=== PATIENT | female | born 1955 | race Two or more races ===

== ENCOUNTER 2024-12-25 11:45 | Emergency (ER) | payer OTHER, MEDICAID ==
[~2024-12-25] VITALS: Ht 149.9 cm; Wt 74.0 kg
--- NOTE | 2024-12-25 12:34 | ED.PDOC ---
SOB-HPI HPI Comments 69 y/o F, presents to the ED for CC of shortness of breath. Patient states, she has been experiencing shortness of breath with associated symptoms of chest pain that radiates to her back xdays. Patient denies any current chest pain, fever, chills, body-aches, or N/V/D. No other associated symptom's, modifiers, recent injuries or sick contacts at this time. Chief Complaint: Shortness of Breath Time Seen by MD: 12:00 Primary Care Provider: T Reviewed notes: Nurses Notes, Medications, Allergies Information Source: Patient Mode of Arrival: EMS Severity: Mild Timing: Days Duration: Since onset PE Risk Factors: None History of: None Modifying Factors: Nothing Associated Signs and Symptoms: None Radiation: Back Location: Substernal Past Medical History PAST MEDICAL HISTORY: Denies Surgical History: Denies all surgeries GROCERY CLERK STOCKING History: Denies all GROCERY CLERK STOCKING Hx Family History Family History: Unknown Social History Smoker: Non-Smoker Alcohol: Denies ETOH Use Drugs: Denies Drug Use Lives In: Home Constitutional: denies: chills, diaphoresis, fatigue, fever, malaise, sweats, weakness, others EENTM: denies: blurred vision, double vision, ear bleeding, ear discharge, ear drainage, ear pain, ear ringing, eye pain, eye redness, hearing loss, mouth pain, mouth swelling, nasal discharge, nose bleeding, nose congestion, nose pain, photophobia, tearing, throat pain, throat swelling, voice changes, others Respiratory: reports: shortness of breath; denies: cough, hemoptysis, orthopnea, SOB at rest, SOB with excertion, stridor, wheezing, others Cardiovascular: reports: chest pain, irregular heart beat; denies: dizzy spells, diaphoresis, Dyspnea on exertion, edema, left arm pain, lightheadedness, palpitations, PND, syncope, others Gastrointestinal: denies: abdomen distended, abdominal pain, blood streaked bowels, constipated, diarrhea, dysphagia, difficulty swallowing, hematemesis, melena, nausea, poor appetite, poor fluid intake, rectal bleeding, rectal pain, vomiting, others Genitourinary: denies: abnormal vagina bleeding, burning, dyspareunia, dysuria, flank pain, frequency, hematuria, incontinence, pain, , vagina discharge, urgency, others Neurological: denies: dizziness, fainting, headache, left sided numbness, left sided weakness, numbness, paresthesia, pre-existing deficit, right sided numbness, right sided weakness, seizure, speech problems, tingling, tremors, weakness, others Musculoskeletal: denies: back pain, gout, joint pain, joint swelling, muscle pain, muscle stiffness, neck pain, others Integumetry: denies: bruises, change in color, change in hair/nails, dryness, laceration, lesions, lumps, rash, wounds, others Allergic/Immunocompromised: denies: Difficulty Healing, Frequent Infections, Hives, Itching, others Hematologic/Lymphatic: denies: anemia, blood clots, easy bleeding, easy bruising, swollen glands, others Endocrine: denies: excessive hunger, excessive sweating, excessive thirst, excessive urination, flushing, intolerance to cold, intolerance to heat, unexplained weight gain, unexplained weight loss, others Psychiatric: denies: anxiety, bipolar disorder, depression, hopeless, panic disorder, schizophrenia, sleepless, suicidal, others All Other Systems: Reviewed and Negative Physical Exam General Appearance: No Apparent Distress HEENT: Normal ENT Inspection, Pharynx Normal, TMs Normal Neck: Full Range of Motion, Non-Tender, Normal, Normal Inspection Respiratory: Chest Non-Tender, Lungs Clear, No Accessory Muscle Use, No Respiratory Distress, Normal Breath Sounds Cardiovascular: No Edema, No JVD, No Murmur, No Gallop, Normal Peripheral Pulses, Regular Rate/Rhythm Breast Exam: Deferred Gastrointestinal: No Organomegaly, Non Tender, No Pulsatile Mass, Normal Bowel Sounds, Soft Genitalia: Deferred Pelvic: Deferred Rectal: Deferred Extremities: No calf tenderness, Normal capillary refill, Normal inspection, Normal range of motion, Non-tender, No pedal edema Musculoskeletal : Apperance: Normal Neurologic: Alert, certified lactation counselor II-XII nml as Tested, No Motor Deficits, Normal Affect, Normal Mood, No Sensory Deficits Cerebellar Function: Normal Reflexes: Normal Skin: Dry, Normal Color, Warm Peripheral Pulses: 3+ Radial (R), 3+ Radial (L) Lymphatic: No Adenopathy Was a procedure done? Was a procedure done?: No Differential Dx Differential Diagnosis: Anxiety, Asthma, Bronchitis, CHF, COPD, Sinusitis, Pharyngitis, URI X-Ray, Labs, Meds, VS Vital Signs Date Time Temp Pulse Resp B/P (MAP) Pulse Ox O2 Delivery O2 Flow Rate FiO2 12/25/24 16:32 93 17 96 Room Air 12/25/24 16:32 98.1 93 17 133/60 (84) 96 98.1 12/25/24 11:55 18 95 Room Air* 0 21 12/25/24 11:48 98.5 102 18 129/82 (98) 95 12/25/24 11:47 85 Lab Test 12/25/24 12:51 Range/Units Troponin I High Sensitivity 10 </=34 ng/L Patient alert. No sign of distress. Vitals stable. Answering all questions. Heart rate within normal limits on clinical examination. She is currently taking blood thinner. No calf tenderness. No leg swelling. Saturation pristine. Cardiac marker within normal limits. EKG reviewed does not show any acute changes. Explained to the patient. Was told to follow up with her primary care physician. Was told to come back if there is any problem. Time of 1ST Reevaluation: 17:47 Reevaluation 1ST: Improved Patient Education/Counseling: Diagnosis, Treatment Family Education/Counseling: No Family Present Additional Information I reviewed the following notes from patient's past medical history: NONE The following tests were ordered, and results were reviewed by me: EKG, CBC, UA, BMP, TROPONIN-I HS I discussed treatment and results with medical personnel and: PATIENT Departure 1 Departure Time of Disposition: 15:52 Impression: Primary Impression: Musculoskeletal chest pain Additional Impression: Stress reaction Disposition: 01 HOME / SELF CARE / HOMELESS Condition: Good Discharged With: Self Critical Care Note Critical Care Time?: No Stability Stability form required: No Heart Score Heart Score: Heart Score Response (Comments) Value History Slightly Suspicious 0 EKG Normal 0 Age >65 2 Risk Factors 1 or 2 risk factors 1 Troponin N/A 0 Total 3 I personally scribed for BARBARA PIZARRO MD ([email or web address]) on 12/25/24 at 12:34. Electronically submitted by Krista Kellogg ([email or web address]). I personally scribed for BARBARA PIZARRO MD ([email or web address]) on 12/25/24 at 13:40. Electronically submitted by Krista Kellogg ([email or web address]). BARBARA PIZARRO MD Dec 25, 2024 12:34
[2024-12-25 16:32] VITALS: BP 133/60; PULSE 93; RESP 17; TEMP 98.1; O2SAT 96
--- NOTE | 2024-12-26 11:34 | ECG ---
[facility] Test Date: 2024-12-25 Test Time: 11:47:08 Pat Name: SUSAN HASTINGS Department: ED Room: Gender: F Cap Sizer: JL GRIFFINB: 1955 Requested By: BARBARA PIZARRO Order Number: [id number] Reading MD: Andriy Stern Measurements Intervals [place] Rate: 85 P: 44 DE: 151 QRS: 5 QRSD: 140 T: 96 QT: 397 QTc: 472 Interpretive Statements Sinus rhythm Left bundle branch block Electronically Signed On 12-30-2024 21:41:37 PST by Andriy Stern Please click the below link to view image of tracing.
== END 2024-12-25 16:34 | disposition home or self-care (01) ==
LOC: EDBD 11:45 → ER 11:45
DX: R07.89 Other chest pain (principal); F43.9 Reaction to severe stress, unspecified
CPT/HCPCS: 36415; 84484; 93005